=== PATIENT | female | born 1985 | race Caucasian/White ===

== ENCOUNTER 2021-01-03 21:35 | Emergency (ER) | payer MEDICAID ==
[~2021-01-03] VITALS: Ht 154.9 cm; Wt 51.9 kg
[2021-01-04] MEDS ORDERED: oxymetazoline 15 ML nasal spray NS ONE (00:15)
[2021-01-04 00:49] VITALS: BP 110/78
== END 2021-01-04 00:50 | disposition home or self-care (01) ==
LOC: ER 21:37
DX: R04.0 Epistaxis (principal); R05 Cough; F17.200 Nicotine dependence, unspecified, uncomplicated
CPT/HCPCS: 99282; 99284